=== PATIENT | female | born 1970 | race Hispanic/Latino ===

== ENCOUNTER 2018-03-06 00:29 | Emergency (ER) | payer BC, OTHER ==
[2018-03-06] MEDS ORDERED: SULFAMETHOX-TMP DS 800/160 TAB ONE (01:16)
[2018-03-06] MEDS ORDERED: ONDANSETRON ODT 4 MG TAB ONE (01:40)
== END 2018-03-06 01:56 | disposition home or self-care (01) ==
LOC: EDH 00:29
DX: L03.116 Cellulitis of left lower limb (principal); R22.42 Localized swelling, mass and lump, left lower limb; E03.9 Hypothyroidism, unspecified; Z98.890 Other specified postprocedural states